=== PATIENT | female | born 1980 | race Native Hawaiian/Other Pacific Islander ===

== ENCOUNTER 2022-09-25 21:35 | Emergency (ER) | payer OTHER ==
[~2022-09-25] VITALS: Ht 162.6 cm; Wt 115.1 kg
[2022-09-25 21:40] VITALS: TEMP 98.9
[2022-09-25 22:45] VITALS: BP 145/89
== END 2022-09-25 22:22 | disposition home or self-care (01) ==
LOC: ED 21:35
DX: K02.9 Dental caries, unspecified (principal); K04.7 Periapical abscess without sinus; I10 Essential (primary) hypertension; Z79.891 Long term (current) use of opiate analgesic; F17.210 Nicotine dependence, cigarettes, uncomplicated
CPT/HCPCS: 96372; 99283; J0696; J1885